=== PATIENT | male | born 1985 | race Two or more races ===

== ENCOUNTER 2019-12-13 10:00 | Inpatient (IN) | payer OTHER ==
--- NOTE | 2019-12-13 10:30 | ER Document Report ---
ED General - General Chief Complaint: Abnormal Lab Results Stated Complaint: ABNORMAL LABS Time Seen by Provider: 12/13/19 10:14 Primary Care Provider: BENITO,NOREEN [Primary Care Provider] - Follow up as needed Notes: HPI: 34-year-old male with a history of ulcerative colitis followed at [facility] by the pulp beater Dr. Jasper Aranda currently on a prednisone 3-week taper secondary to a recent ulcerative colitis flare, who presents feeling a little "tired" for 2 weeks. He had a hemoglobin drawn at lab core yesterday that was 6.1. Patient states some chronic abdominal discomfort with no increased intensity. No nausea, vomiting, or fevers. He does state some chronic diarrhea with possibly some blood which he states is normal. He is on his second infusion of Intivio. He has never received a blood transfusion. He does not remember his last colonoscopy. ROS: See HPI All other review of systems reviewed and otherwise negative Reviewed vital signs and nursing note as charted by RN. PHYSICAL EXAM: CONSTITUTIONAL: Alert and oriented and responds appropriately to questions. Well-appearing; well-nourished HEAD: Normocephalic; atraumatic EYES: PERRL; Conjunctivae clear, sclerae is pale ENT: Normal nose; no rhinorrhea; moist mucous membranes; mucosa is pale; pharynx without lesions noted NECK: Supple without meningismus; non-tender; no cervical lymphadenopathy, no masses CARD: Tachycardic and regular; no murmurs; symmetric distal pulses RESP: Normal chest excursion without splinting or tachypnea; breath sounds clear and equal bilaterally ABD/GI: Normal bowel sounds; non-distended; soft, mildly tender to all 4 quadrants of the abdomen without any rebound or guarding BACK: The back appears normal and is non-tender to palpation EXT: Normal ROM in all joints; non-tender to palpation; no edema SKIN: No acute lesions noted NEURO: CN 2-12 intact; 5/5 bilateral upper and lower extremity strength with sensation intact to light touch PSYCH: The patient's mood and manner are appropriate. Grooming and personal hygiene are appropriate. - Related Data Allergies/Adverse Reactions: No Known Drug Allergies Allergy (Mild, Verified 04/13/11 15:31) Past Medical History - Social History Smoking Status: Unknown if Ever Smoked Family History: Reviewed & Not Pertinent - Immunizations Hx Diphtheria, Pertussis, Tetanus Vaccination: Yes Physical Exam - Vital signs Vitals: Temp Pulse Resp BP Pulse Ox 98.9 F 115 H 18 118/74 98 12/13/19 10:06 12/13/19 10:06 12/13/19 10:06 12/13/19 10:06 12/13/19 10:06 Course - Re-evaluation Re-evalutation: 12/13/19 10:29 Given the above history and physical we will proceed with labs, repeat hemoglobin, type and screen, and reassess. Patient is slightly tachycardic. Sclera is pale. I have discussed the risk and benefits of providing blood in the patient understands these. He believes he would like to receive the blood if his hemoglobin is below 7. 12/13/19 11:40 Hemoglobin as recorded. We have consented the patient for blood transfusion. We will attempt to transfer the patient for further evaluation and treatment. Patient's heart rate is still 110. I will hold on fluids at this moment and provide the needed blood. We have called multiple locations given the current coronavirus in full capacity to try to find transfer for this patient as we do not have gastroenterology. We believe [facility] may have the capability. 12/13/19 11:57 At the patient's request I have called and spoken directly to the patient's gastroenterology team. I spoke with Oksana the nurse practitioner/nurse. She states that they will try to have the patient be able to be accepted at [facility] in [place]. 12/13/19 12:28 I was able to speak with our general surgeon here who states in the very unusual event that a colonoscopy is needed, he would be able to perform. Our hospital ist is comfortable with that. The patient's pulp beater is comfortable with that. She does recommend a 125 Solu-Medrol dose as well as to check for C. difficile and they will see the patient as an outpatient. - Vital Signs Vital signs: Temp Pulse Resp BP Pulse Ox 98.8 F 113 H 25 H 117/68 100 12/13/19 10:48 12/13/19 10:48 12/13/19 11:01 12/13/19 11:01 12/13/19 11:01 - Laboratory Result Diagrams: 12/13/19 10:31 12/13/19 10:31 Laboratory results interpreted by me: 12/13/19 12/13/19 12/13/19 10:31 10:31 10:31 WBC 12.5 H RBC 2.71 L Hgb 6.7 L Hct 22.1 L MCH 24.8 L MCHC 30.4 L RDW 19.3 H Plt Count 602 H Absolute Neuts (auto) 9.9 H Seg Neutrophils % 78.8 H Sodium 135.4 L Glucose 137 H Albumin 3.2 L Crossmatch See Detail Critical Care Note - Critical Care Note Total time excluding time spent on procedures (mins): 35 Discharge - Discharge Clinical Impression: Acute blood loss anemia GI bleeding Qualifiers: GI bleed type/associated pathology: unspecified gastrointestinal hemorrhage ty pe Qualified Code(s): K92.2 - Gastrointestinal hemorrhage, unspecified Condition: Fair Disposition: ADMITTED OBSERVATION Admitting Provider: Orly (Hospitalist) Unit Admitted: Medical Floor Referrals: LOCALMD,NO [Primary Care Provider] - Follow up as needed
[2019-12-13 10:56] LABS: INTERNATIONAL RATION (INR) 1.04; PROTHROMBIN TIME 13.8 SEC (11.4-15.4)
[2019-12-13 11:05] LABS: ABSOLUTE EOSINOPHILS # (AUTO) 0.2 10^3/uL (0.0-0.6); ABSOLUTE LYMPHOCYTES (AUTO) 1.8 10^3/uL (0.5-4.7); ABSOLUTE MONOCYTES (AUTO) 0.6 10^3/uL (0.1-1.4); ABSOLUTE NEUT (AUTO) 9.9 10^3/uL (1.7-8.2); BASOPHILS % (AUTO) 0.3 % (0-2); EOSINOPHILS % (AUTO) 1.7 % (0-6); HEMATOCRIT 22.1 % (37.9-51.0); LYMPHOCYTES % (AUTO) 14.7 % (13-45); MEAN CORPUSCULAR HEMOGLOBIN 24.8 pg (27.0-33.4); MEAN CORPUSCULAR HGB CONC 30.4 g/dL (32.0-36.0); MEAN CORPUSCULAR VOLUME 82 fl (80-97); MONOCYTES % (AUTO) 4.5 % (3-13); PLATELET COUNT 602 10^3/uL (150-450); RED BLOOD COUNT 2.71 10^6/uL (4.35-5.55); RED CELL DISTRIBUTION WIDTH 19.3 % (11.5-14.0); SEGMENTED NEUTROPHILS % (AUTO) 78.8 % (42-78); TOTAL CELLS COUNTED % (AUTO) 100 %; WHITE BLOOD COUNT 12.5 10^3/uL (4.0-10.5)
[2019-12-13 11:11] LABS: ALBUMIN 3.2 g/dL (3.5-5.0); ALKALINE PHOSPHATASE 72 U/L (38-126); ANION GAP 6 (5-19); ASPARTATE AMINO TRANSFERASE 17 U/L (17-59); BILIRUBIN,TOTAL 0.5 mg/dL (0.2-1.3); BLOOD UREA NITROGEN 8 mg/dL (7-20); CALCIUM 8.7 mg/dL (8.4-10.2); CARBON DIOXIDE 27 mmol/L (22-30); CHLORIDE 102 mmol/L (98-107); GLUCOSE 137 mg/dL (75-110); POTASSIUM 4.2 mmol/L (3.6-5.0); TOTAL PROTEIN 6.8 g/dL (6.3-8.2)
[2019-12-13 11:14] LABS: HEMOGLOBIN 6.7 g/dL (13.5-17.0)
[2019-12-13] MEDS ORDERED: NORMAL SALINE 250 ML IV PRN ×2 (11:41)
[2019-12-13] MEDS ORDERED: METHYLPREDNISOLONE INJ 125 MG/2 ML SDV IV ONE (12:27)
--- NOTE | 2019-12-13 12:37 | RADIOLOGY REPORT (SQ) ---
EXAM DESCRIPTION: CT ABD/PELVIS WITH IV ONLY IMAGES COMPLETED DATE/TIME: 12/13/2019 12:18 pm REASON FOR STUDY: 3; GI bleed COMPARISON: None. TECHNIQUE: CT scan of the abdomen and pelvis performed using helical scanning technique with dynamic intravenous contrast injection. No oral contrast. Images reviewed with lung, soft tissue, and bone windows. Reconstructed coronal and sagittal MPR images reviewed. Delayed images for evaluation of the urinary system also acquired. All images stored on PACS. All CT scanners at this facility use dose modulation, iterative reconstruction, and/or weight based d osing when appropriate to reduce radiation dose to as low as reasonably achievable (ALARA). [facility]: Dose Right [facility]: CareDose [facility]: Dose Right [facility]: Teradose 4D [facility]: Mob Science CONTRAST TYPE AND DOSE: contrast/concentration: Isovue 350.00 mmol/ml; Total Contrast Delivered: 94. 0 ml; Total Saline Delivered: 71.0 ml RENAL FUNCTION: GFR > 60. RADIATION DOSE: CT Rad equipment meets quality standard of care and radiation dose reduction techniq ues were employed. CTDIvol: 7.2 - 10.3 mGy. DLP: 912 mGy-cm.. LIMITATIONS: None. FINDINGS: LOWER CHEST: No significant findings. No nodules or infiltrates. LIVER: Normal size. Fatty change. No masses. No dilated ducts. SPLEEN: Normal size. No focal lesions. PANCREAS: No masses. No significant calcifications. No adjacent inflammation or peripancreatic fluid collections. Pancreatic duct not dilated. GALLBLADDER: No identified stones by CT criteria. No inflammatory changes to suggest cholecystitis. ADRENAL GLANDS: No significant masses or asymmetry. RIGHT KIDNEY AND URETER: No solid masses. No significant calcifications. No hydronephrosis or hyd roureter. LEFT KIDNEY AND URETER: No solid masses. No significant calcifications. No hydronephrosis or hydr oureter. AORTA AND VESSELS: No aneurysm. No dissection. Renal arteries, SMA, celiac without stenosis. RETROPERITONEUM: No retroperitoneal adenopathy, hemorrhage or masses. BOWEL AND PERITONEAL CAVITY: Hyperemia in the descending colon mesentery. No dilated loops. No asci cyndy. APPENDIX: Normal. PELVIS: No mass. No free fluid. Normal bladder. ABDOMINAL WALL: No masses. No hernias. BONES: No significant or acute findings. OTHER: No other significant finding. IMPRESSION: Colitis distal descending colon. TECHNICAL DOCUMENTATION: JOB ID: [id number] Quality ID # [id number]: Final reports with documentation of one or more dose reduction techniques (e.g., Au tomated exposure control, adjustment of the mA and/or kV according to patient size, use of iterative reconstruction technique) 2010 [employer]- All Rights Reserved Reading location - IP[facility]workstation name: [email or web address]
[2019-12-13] MEDS ORDERED: OXYCODONE-ACETAMINOPHEN 5-325 MG TABLET PO PRN (13:19)
[2019-12-13] MEDS ORDERED: ACETAMINOPHEN 325 MG TABLET PO PRN (13:19)
[2019-12-13] MEDS ORDERED: DEXTROSE 40% GEL 15 GM TUBE PO PRN ×2 (13:27)
[2019-12-13] MEDS ORDERED: DEXTROSE 50%-WATER 25 GM/50 ML DISP.SYRIN IV PRN ×2 (13:27)
[2019-12-13] MEDS ORDERED: GLUCAGON,HUMAN RECOMB 1 MG INJ SUBCUT PRN (13:27)
--- NOTE | 2019-12-13 13:35 | PDOC H&P ---
History of Present Illness Admission Date/PCP: 12/13/19 12:36 [facility] Patient complains of: Came in with abdominal cramps and loose stools History of Present Illness: KASHIF QUINTERO is a 34 year old male with history of ulcerative colitis on intivio, tapering dose of prednisone came to the emergency with complaints of abdominal cramps and loose stools on and off for last 2 months. Work-up in the ER shows WBC count of 12,500 and a hemoglobin of 6.7. Medical consult was called for admission the ER physician touch base with patient's quality eng and the recommendation is to start on IV fluids, IV steroids, blood transfusions and to check for stool for C. difficile. Patient agreed to stay in the hospital overnight. Denies any fevers denies any nausea denies any vomiting denies any abdominal pain except for cramps. Past Medical History GI Medical History: Reports: Ulcerative Colitis Social History Information Source: Patient Smoking Status: Unknown if Ever Smoked Electronic Cigarette use?: No Hx Recreational Drug Use: No Hx Prescription Drug Abuse: No - Advance Directive Resuscitation Status: Full Code Family History Family History: Reviewed & Not Pertinent Parental Family History Reviewed: Yes - No significant family history Children Family History Reviewed: Yes Sibling(s) Family History Reviewed.: Yes Medication/Allergy Home Medications: No Home Medications 04/13/11 Allergies/Adverse Reactions: No Known Drug Allergies Allergy (Mild, Verified 04/13/11 15:31) Review of Systems Constitutional: PRESENT: fatigue, weakness. ABSENT: fever(s), headache(s), night sweats Eyes: ABSENT: visual disturbances Ears: ABSENT: hearing changes Nose, Mouth, and Throat: ABSENT: sore throat Cardiovascular: ABSENT: orthropnea, palpitations Respiratory: ABSENT: hemoptysis Gastrointestinal: PRESENT: abdominal pain, diarrhea, other - Occasional bloody stools Musculoskeletal: ABSENT: joint swelling Integumentary: ABSENT: rash, wounds Neurological: ABSENT: abnormal gait, abnormal speech, confusion, dizziness, focal weakness, syncope Psychiatric: ABSENT: anxiety, depression, homidical ideation, suicidal ideation Physical Exam Vital Signs: Temp Pulse Resp BP Pulse Ox 98.8 F 113 H 24 H 122/75 100 12/13/19 10:48 12/13/19 10:48 12/13/19 12:00 12/13/19 12:01 12/13/19 12:00 Intake & Output 12/12/19 12/13/19 12/14/19 06:59 06:59 06:59 Weight 81.647 kg General appearance: PRESENT: mild distress, well-developed Head exam: PRESENT: atraumatic Eye exam: PRESENT: PERRLA Ear exam: PRESENT: normal external ear exam Mouth exam: PRESENT: neck supple Teeth exam: PRESENT: poor dentation Neck exam: ABSENT: carotid bruit, JVD, lymphadenopathy, thyromegaly Respiratory exam: PRESENT: decreased breath sounds Cardiovascular exam: PRESENT: RRR. ABSENT: diastolic murmur, rubs, systolic murmur GI/Abdominal exam: PRESENT: normal bowel sounds, soft. ABSENT: distended, guarding, mass, organolmegaly, rebound, tenderness Rectal exam: PRESENT: deferred Extremities exam: PRESENT: full ROM. ABSENT: calf tenderness, clubbing, pedal edema Neurological exam: PRESENT: alert, awake, oriented to person, oriented to place, oriented to time, oriented to situation, CN II-XII grossly intact. ABSENT: motor sensory deficit Results Laboratory Results: 12/13/19 10:31 12/13/19 10:31 12/13/19 12/13/19 12/13/19 10:31 10:31 10:31 WBC 12.5 H RBC 2.71 L Hgb 6.7 L Hct 22.1 L MCV 82 MCH 24.8 L MCHC 30.4 L RDW 19.3 H Plt Count 602 H Seg Neutrophils % 78.8 H Sodium 135.4 L Potassium 4.2 Chloride 102 Carbon Dioxide 27 Anion Gap 6 BUN 8 Creatinine 0.92 Est GFR ( Amer) > 60 Glucose 137 H Calcium 8.7 Total Bilirubin 0.5 AST 17 Alkaline Phosphatase 72 Total Protein 6.8 Albumin 3.2 L Blood Type B POSITIVE Antibody Screen NEGATIVE Impressions: Abdomen/Pelvis CT 12/13/19 11:39 IMPRESSION: Colitis distal descending colon. Assessment and Plan - Diagnosis (1) Acute blood loss anemia Is this a current diagnosis for this admission?: Yes Plan: 12/13/2019-patient is going to be admitted to medical floor with a diagnosis of acute blood loss anemia most likely secondary to GI bleed due to ulcerative colitis. Patient is going to be inpatient starting GI prophylaxis. No DVT prophylaxis initiated. Patient will be on SCDs. Heparin crossmatch was done plan is to transfuse 2 units of PRBC. Patient was started on IV Solu-Medrol 40 mg every 8 hours. Stool for C. difficile be checked. To continue IV fluids at 75 cc/h. He was started on Percocet 02/02/20 every 6 as needed. (2) Ulcerative colitis Is this a current diagnosis for this admission?: Yes Plan: 12/13/2019-patient is going to be admitted for a flareup of the ulcerative colitis. Started on IV Solu-Medrol 40 mg every 8 hours. N.p.o. today continue IV fluids, pain medications, GI prophylaxis. - Time Anticipated Discharge Disposition: Home, Self Care Anticipated Discharge Timeframe: within 48 hours
[2019-12-13] MEDS: METOCLOPRAMIDE HCL INJ/PF 10 MG/2 ML SDV IV SCH ×2 (16:10→23:51)
[2019-12-13] MEDS: DOCUSATE SODIUM 100 MG/10 ML UDC PO SCH (17:19)
[2019-12-13 21:26] LABS: C DIFFICILE GDH NEGATIVE (NEGATIVE)
[2019-12-13] MEDS: METHYLPREDNISOLONE INJ 40 MG/1 ML SDV IV SCH (23:50)
[2019-12-13] MEDS: FAMOTIDINE 20 MG TABLET PO SCH (23:50)
[2019-12-13] MEDS: MELATONIN 3 MG TABLET PO PRN (23:51)
[2019-12-13] MEDS: NORMAL SALINE 1000 ML 1,000 ML IV PRN (23:51)
[2019-12-14] MEDS: METHYLPREDNISOLONE INJ 40 MG/1 ML SDV IV SCH ×3 (05:18→22:07)
[2019-12-14 05:33] LABS: ABSOLUTE LYMPHOCYTES (AUTO) 1.6 10^3/uL (0.5-4.7); ABSOLUTE MONOCYTES (AUTO) 0.4 10^3/uL (0.1-1.4); ABSOLUTE NEUT (AUTO) 7.7 10^3/uL (1.7-8.2); HEMATOCRIT 25.8 % (37.9-51.0); HEMOGLOBIN 8.5 g/dL (13.5-17.0); LYMPHOCYTES % (AUTO) 16.6 % (13-45); MEAN CORPUSCULAR HEMOGLOBIN 27.6 pg (27.0-33.4); MEAN CORPUSCULAR VOLUME 84 fl (80-97); MONOCYTES % (AUTO) 4.4 % (3-13); PLATELET COUNT 484 10^3/uL (150-450); RED BLOOD COUNT 3.08 10^6/uL (4.35-5.55); RED CELL DISTRIBUTION WIDTH 17.7 % (11.5-14.0); TOTAL CELLS COUNTED % (AUTO) 100 %; WHITE BLOOD COUNT 9.8 10^3/uL (4.0-10.5)
[2019-12-14 05:36] LABS: ALBUMIN 2.9 g/dL (3.5-5.0); ALKALINE PHOSPHATASE 63 U/L (38-126); ANION GAP 8 (5-19); ASPARTATE AMINO TRANSFERASE 13 U/L (17-59); BILIRUBIN,TOTAL 0.6 mg/dL (0.2-1.3); BLOOD UREA NITROGEN 10 mg/dL (7-20); CALCIUM 8.7 mg/dL (8.4-10.2); CARBON DIOXIDE 24 mmol/L (22-30); CHLORIDE 105 mmol/L (98-107); CHOLESTEROL 170.06 mg/dL (0-200); GLUCOSE 142 mg/dL (75-110); POTASSIUM 4.6 mmol/L (3.6-5.0); TOTAL PROTEIN 6.2 g/dL (6.3-8.2); TRIGLYCERIDES 88 mg/dL (<150)
[2019-12-14 05:47] LABS: DIRECT LDL 107 mg/dL (<100)
[2019-12-14] MEDS: DOCUSATE SODIUM 100 MG/10 ML UDC PO SCH ×2 (09:03→17:11)
[2019-12-14] MEDS: FAMOTIDINE 20 MG TABLET PO SCH ×2 (09:05→22:07)
[2019-12-14] MEDS: METOCLOPRAMIDE HCL INJ/PF 10 MG/2 ML SDV IV SCH ×4 (09:05→22:07)
--- NOTE | 2019-12-14 10:55 | PDOC PROGRESS REPORT ---
Subjective Progress Note for:: 12/14/19 Subjective:: 34 year old male with history of ulcerative colitis on intivio, tapering dose of prednisone came to the emergency with complaints of abdominal cramps and loose stools on and off for last 2 months. Work-up in the ER shows WBC count of 12,500 and a hemoglobin of 6.7. Medical consult was called for admission the ER physician touch base with patient's practical nursing teacher and the recommendation is to start on IV fluids, IV steroids, blood transfusions and to check for stool for C. difficile. Patient agreed to stay in the hospital overnight. Denies any fevers denies any nausea denies any vomiting denies any abdominal pain except for cramps. 12/14/1942-34-nrek-old male admitted with flareup of ulcerative colitis doing well. Stool work-up came back positive for C. difficile. Started on p.o. vancomycin 125 mg every 6 hours and he will be in contact isolation. Reason For Visit: ULCERATIVE COLITIS Physical Exam Vital Signs: Temp Pulse Resp BP Pulse Ox 98.8 F 105 H 18 124/70 96 12/13/19 23:01 12/13/19 23:01 12/13/19 23:01 12/13/19 23:01 12/13/19 23:01 Intake & Output 12/13/19 12/14/19 12/15/19 06:59 06:59 06:59 Intake Total 1100 Output Total 0 Balance 1100 Weight 82.4 kg General appearance: PRESENT: no acute distress, cooperative, well-developed Head exam: PRESENT: atraumatic Eye exam: PRESENT: PERRLA Mouth exam: PRESENT: moist, tongue midline Throat exam: PRESENT: tonsillogmegaly Respiratory exam: PRESENT: decreased breath sounds Cardiovascular exam: PRESENT: RRR. ABSENT: diastolic murmur, rubs, systolic murmur GI/Abdominal exam: PRESENT: normal bowel sounds, soft. ABSENT: distended, guarding, mass, organolmegaly, rebound, tenderness Rectal exam: PRESENT: deferred Extremities exam: PRESENT: full ROM. ABSENT: calf tenderness, clubbing, pedal edema Neurological exam: PRESENT: alert, awake, oriented to person, oriented to place, oriented to time, oriented to situation, CN II-XII grossly intact. ABSENT: motor sensory deficit Psychiatric exam: PRESENT: appropriate affect, normal mood. ABSENT: homicidal ideation, suicidal ideation Results Laboratory Results: 12/14/19 04:59 12/14/19 04:59 12/13/19 12/13/19 12/13/19 10:31 10:31 10:31 WBC 12.5 H RBC 2.71 L Hgb 6.7 L Hct 22.1 L MCV 82 MCH 24.8 L MCHC 30.4 L RDW 19.3 H Plt Count 602 H Seg Neutrophils % 78.8 H Sodium 135.4 L Potassium 4.2 Chloride 102 Carbon Dioxide 27 Anion Gap 6 BUN 8 Creatinine 0.92 Est GFR ( Amer) > 60 Glucose 137 H Calcium 8.7 Magnesium Total Bilirubin 0.5 AST 17 Alkaline Phosphatase 72 Total Protein 6.8 Albumin 3.2 L Triglycerides Cholesterol LDL Cholesterol Direct VLDL Cholesterol HDL Cholesterol Stl C.difficile Tox PCR Blood Type B POSITIVE Antibody Screen NEGATIVE 12/13/19 12/14/19 12/14/19 20:19 04:59 04:59 WBC 9.8 RBC 3.08 L Hgb 8.5 L Hct 25.8 L MCV 84 MCH 27.6 MCHC 33.0 RDW 17.7 H Plt Count 484 H Seg Neutrophils % 79.0 H Sodium 136.9 L Potassium 4.6 Chloride 105 Carbon Dioxide 24 Anion Gap 8 BUN 10 Creatinine 0.80 Est GFR ( Amer) > 60 Glucose 142 H Calcium 8.7 Magnesium 2.2 Total Bilirubin 0.6 AST 13 L Alkaline Phosphatase 63 Total Protein 6.2 L Albumin 2.9 L Triglycerides 88 Cholesterol 170.06 LDL Cholesterol Direct 107 H VLDL Cholesterol 18.0 HDL Cholesterol 54 Stl C.difficile Tox PCR POSITIVE Blood Type Antibody Screen Impressions: Abdomen/Pelvis CT 12/13/19 11:39 IMPRESSION: Colitis distal descending colon. Assessment and Plan - Diagnosis (1) Acute blood loss anemia Is this a current diagnosis for this admission?: Yes Plan: 12/13/2019-patient is going to be admitted to medical floor with a diagnosis of acute blood loss anemia most likely secondary to GI bleed due to ulcerative colitis. Patient is going to be inpatient starting GI prophylaxis. No DVT prophylaxis initiated. Patient will be on SCDs. Heparin crossmatch was done plan is to transfuse 2 units of PRBC. Patient was started on IV Solu-Medrol 40 mg every 8 hours. Stool for C. difficile be checked. To continue IV fluids at 75 cc/h. He was started on Percocet 02/02/20 every 6 as needed. 12/14/19-patient came in with acute blood loss anemia with hemoglobin of 6.7 most likely secondary to flareup of ulcerative colitis. After 2 units of PRBC he moglobin came up to 8.5. Plan is to closely monitor the labs on regular basis. (2) Ulcerative colitis Is this a current diagnosis for this admission?: Yes Plan: 12/13/2019-patient is going to be admitted for a flareup of the ulcerative colitis. Started on IV Solu-Medrol 40 mg every 8 hours. N.p.o. today continue IV fluids, pain medications, GI prophylaxis. (3) C. difficile diarrhea Is this a current diagnosis for this admission?: Yes Plan: 12/14/2019-stool culture is positive for C. difficile. Started on p.o. vancomycin 125 mg every 6 hours. Contact isolation is requested. - Time Anticipated Discharge Disposition: Home, Self Care Anticipated Discharge Timeframe: within 48 hours
[2019-12-14] MEDS: VANCOMYCIN HCL INJ 500 MG VIAL PO SCH ×2 (11:30→17:08)
[2019-12-14] MEDS: NORMAL SALINE 1000 ML 1,000 ML IV PRN (13:12)
[2019-12-14] MEDS: MELATONIN 3 MG TABLET PO PRN (22:07)
[2019-12-15] MEDS: VANCOMYCIN HCL INJ 500 MG VIAL PO SCH ×3 (00:33→12:10)
[2019-12-15] MEDS: METHYLPREDNISOLONE INJ 40 MG/1 ML SDV IV SCH (06:00)
[2019-12-15 06:15] LABS: ABSOLUTE LYMPHOCYTES (AUTO) 1.5 10^3/uL (0.5-4.7); ABSOLUTE MONOCYTES (AUTO) 1.3 10^3/uL (0.1-1.4); ABSOLUTE NEUT (AUTO) 7.2 10^3/uL (1.7-8.2); BASOPHILS % (AUTO) 0.2 % (0-2); HEMATOCRIT 25.7 % (37.9-51.0); HEMOGLOBIN 8.3 g/dL (13.5-17.0); LYMPHOCYTES % (AUTO) 15.3 % (13-45); MEAN CORPUSCULAR HEMOGLOBIN 26.9 pg (27.0-33.4); MEAN CORPUSCULAR HGB CONC 32.3 g/dL (32.0-36.0); MEAN CORPUSCULAR VOLUME 83 fl (80-97); MONOCYTES % (AUTO) 12.6 % (3-13); PLATELET COUNT 491 10^3/uL (150-450); RED BLOOD COUNT 3.08 10^6/uL (4.35-5.55); RED CELL DISTRIBUTION WIDTH 18.7 % (11.5-14.0); SEGMENTED NEUTROPHILS % (AUTO) 71.9 % (42-78); TOTAL CELLS COUNTED % (AUTO) 100 %
[2019-12-15 06:35] LABS: ALBUMIN 2.9 g/dL (3.5-5.0); ALKALINE PHOSPHATASE 56 U/L (38-126); ANION GAP 8 (5-19); ASPARTATE AMINO TRANSFERASE 18 U/L (17-59); BILIRUBIN,TOTAL 0.4 mg/dL (0.2-1.3); BLOOD UREA NITROGEN 13 mg/dL (7-20); CALCIUM 8.4 mg/dL (8.4-10.2); CARBON DIOXIDE 23 mmol/L (22-30); CHLORIDE 105 mmol/L (98-107); GLUCOSE 161 mg/dL (75-110); POTASSIUM 4.3 mmol/L (3.6-5.0)
[2019-12-15] MEDS: METOCLOPRAMIDE HCL INJ/PF 10 MG/2 ML SDV IV SCH ×2 (07:38→10:50)
[2019-12-15] MEDS: FAMOTIDINE 20 MG TABLET PO SCH (10:50)
[2019-12-15] MEDS: DOCUSATE SODIUM 100 MG/10 ML UDC PO SCH (10:50)
[2019-12-15 12:07] VITALS: BP 140/74
--- NOTE | 2019-12-15 13:29 | PDOC DISCHARGE SUMMARY ---
Impression - Admit/DC Date/PCP Admission Date/Primary Care Provider: 12/13/19 12:[facility] Discharge Date: 12/15/19 - Discharge Diagnosis (1) Acute blood loss anemia Is this a current diagnosis for this admission?: Yes (2) Ulcerative colitis Is this a current diagnosis for this admission?: Yes (3) C. difficile diarrhea Is this a current diagnosis for this admission?: Yes - Additional Information Resuscitation Status: Full Code Discharge Diet: Cardiac Discharge Activity: Activity As Tolerated Referrals: [facility] [Provider Group] Prescriptions: Prednisone 10 mg PO BID 7 Days #14 tab Vancomycin HCl [Vancocin Inj 500 mg Vial] 125 mg PO Q6 10 Days #40 tab Home Medications: Prednisone 10 mg PO BID 7 Days #14 tab 12/15/19 Vancomycin HCl [Vancocin Inj 500 mg Vial] 125 mg PO Q6 10 Days #40 tab 12/15/19 History of Present Illiness History of Present Illness: KASHIF QUINTERO is a 34 year old male with history of ulcerative colitis on intivio, tapering dose of prednisone came to the emergency with complaints of abdominal cramps and loose stools on and off for last 2 months. Work-up in the ER shows WBC count of 12,500 and a hemoglobin of 6.7. Medical consult was called for admission the ER physician touch base with patient's kitchen chef and the recommendation is to start on IV fluids, IV steroids, blood transfusions and to check for stool for C. difficile. Patient agreed to stay in the hospital overnight. Denies any fevers denies any nausea denies any vomiting denies any abdominal pain except for cramps. Hospital Course Hospital Course: 34 year old male with history of ulcerative colitis on intivio, tapering dose of prednisone came to the emergency with complaints of abdominal cramps and loose stools on and off for last 2 months. Work-up in the ER shows WBC count of 12,500 and a hemoglobin of 6.7. Medical consult was called for admission the ER physician touch base with patient's kitchen chef and the recommendation is to start on IV fluids, IV steroids, blood transfusions and to check for stool for C. difficile. Patient agreed to stay in the hospital overnight. Denies any fevers denies any nausea denies any vomiting denies any abdominal pain except for cramps. 12/15/2019-patient states her diarrhea is improving. Stomach cramps resolved. Expressing desire to go home today with p.o. vancomycin. I tried my best to convince him to stay in the hospital he prefers to go home and continue p.o. antibiotic therapy. Prescription for p.o. vancomycin was given and the patient called me back and said it cost him $900 at [facility]. He requested me to call [facility] pharmacy just in the [facility] give the montoya of $500 per 10-day supply of p.o. vancomycin. Antibiotics is switched to Flagyl 500 mg p.o. 3 times daily for 10 days because of the cost of $35. Patient agreed for the change of medication and he is going to follow-up with gastroenterology next week. Physical Exam Vital Signs: Temp Pulse Resp BP Pulse Ox 98.2 F 105 H 19 140/74 H 100 12/15/19 12:00 12/15/19 12:00 12/15/19 12:00 12/15/19 12:00 12/15/19 12:00 Intake & Output 12/14/19 12/15/19 12/16/19 06:59 06:59 06:59 Intake Total 1100 1380 240 Output Total 0 Balance 1100 1380 240 Weight 82.4 kg 88.1 kg General appearance: PRESENT: no acute distress, well-developed Head exam: PRESENT: atraumatic Eye exam: PRESENT: PERRLA Ear exam: PRESENT: normal external ear exam Mouth exam: PRESENT: moist, tongue midline Neck exam: PRESENT: carotid bruit Respiratory exam: PRESENT: clear to auscultation milo. ABSENT: rales, rhonchi, wheezes Cardiovascular exam: PRESENT: RRR. ABSENT: diastolic murmur, rubs, systolic murmur GI/Abdominal exam: PRESENT: normal bowel sounds, soft. ABSENT: distended, guarding, mass, organolmegaly, rebound, tenderness Rectal exam: PRESENT: deferred Extremities exam: PRESENT: full ROM. ABSENT: calf tenderness, clubbing, pedal edema Neurological exam: PRESENT: alert, awake, oriented to person, oriented to place, oriented to time, oriented to situation, CN II-XII grossly intact. ABSENT: motor sensory deficit Psychiatric exam: PRESENT: appropriate affect, normal mood. ABSENT: homicidal ideation, suicidal ideation Results Laboratory Results: WBC 10.0 10^3/uL (4.0-10.5) 12/15/19 05:26 RBC 3.08 10^6/uL (4.35-5.55) L 12/15/19 05:26 Hgb 8.3 g/dL (13.5-17.0) L 12/15/19 05:26 Hct 25.7 % (37.9-51.0) L 12/15/19 05:26 MCV 83 fl (80-97) 12/15/19 05:26 MCH 26.9 pg (27.0-33.4) L 12/15/19 05:26 MCHC 32.3 g/dL (32.0-36.0) 12/15/19 05:26 RDW 18.7 % (11.5-14.0) H 12/15/19 05:26 Plt Count 491 10^3/uL (150-450) H 12/15/19 05:26 Lymph % (Auto) 15.3 % (13-45) 12/15/19 05:26 [place] % (Auto) 12.6 % (3-13) 12/15/19 05:26 Eos % (Auto) 0.0 % (0-6) 12/15/19 05:26 Baso % (Auto) 0.2 % (0-2) 12/15/19 05:26 Absolute Neuts (auto) 7.2 10^3/uL (1.7-8.2) 12/15/19 05:26 Absolute Lymphs (auto) 1.5 10^3/uL (0.5-4.7) 12/15/19 05:26 Absolute Monos (auto) 1.3 10^3/uL (0.1-1.4) 12/15/19 05:26 Absolute Eos (auto) 0.0 10^3/uL (0.0-0.6) 12/15/19 05:26 Absolute Basos (auto) 0.0 10^3/uL (0.0-0.2) 12/15/19 05:26 Seg Neutrophils % 71.9 % (42-78) 12/15/19 05:26 PT 13.8 SEC (11.4-15.4) 12/13/19 10:31 INR 1.04 12/13/19 10:31 Sodium 136.0 mmol/L (137-145) L 12/15/19 05:26 Potassium 4.3 mmol/L (3.6-5.0) 12/15/19 05:26 Chloride 105 mmol/L (98-107) 12/15/19 05:26 Carbon Dioxide 23 mmol/L (22-30) 12/15/19 05:26 Anion Gap 8 (5-19) 12/15/19 05:26 BUN 13 mg/dL (7-20) 12/15/19 05:26 Creatinine 0.77 mg/dL (0.52-1.25) 12/15/19 05:26 Est GFR ( Amer) > 60 (>60) 12/15/19 05:26 Est GFR (MDRD) Non-Af > 60 (>60) 12/15/19 05:26 Glucose 161 mg/dL (75-110) H 12/15/19 05:26 Calcium 8.4 mg/dL (8.4-10.2) 12/15/19 05:26 Magnesium 2.3 mg/dL (1.6-2.3) 12/15/19 05:26 Total Bilirubin 0.4 mg/dL (0.2-1.3) 12/15/19 05:26 Direct Bilirubin 0.0 mg/dL (0.0-0.4) 12/15/19 05:26 Neonat Total Bilirubin Not Reportable 12/15/19 05:26 Neonat Direct Bilirubin Not Reportable 12/15/19 05:26 Neonat Indirect Bili Not Reportable 12/15/19 05:26 AST 18 U/L (17-59) 12/15/19 05:26 ALT 24 U/L (<50) 12/15/19 05:26 Alkaline Phosphatase 56 U/L (38-126) 12/15/19 05:26 Total Protein 6.0 g/dL (6.3-8.2) L 12/15/19 05:26 Albumin 2.9 g/dL (3.5-5.0) L 12/15/19 05:26 Triglycerides 88 mg/dL (<150) 12/14/19 04:59 Cholesterol 170.06 mg/dL (0-200) 12/14/19 04:59 LDL Cholesterol Direct 107 mg/dL (<100) H 12/14/19 04:59 VLDL Cholesterol 18.0 mg/dL (10-31) 12/14/19 04:59 HDL Cholesterol 54 mg/dL (>40) 12/14/19 04:59 POC Stool Occult Blood POSITIVE (NEGATIVE) 12/13/19 10:21 Stl C. Difficile GDH Ag NEGATIVE (NEGATIVE) 12/13/19 20:19 Stl C.difficile Tox A&B POSITIVE (NEGATIVE) 12/13/19 20:19 Stl C.difficile Tox PCR POSITIVE (NEGATIVE) 12/13/19 20:19 Blood Type B POSITIVE 12/13/19 10:31 Blood Type Confirm B POSITIVE 12/13/19 12:45 Antibody Screen NEGATIVE 12/13/19 10:31 Crossmatch See Detail 12/13/19 10:31 Impressions: Abdomen/Pelvis CT 12/13/19 11:39 IMPRESSION: Colitis distal descending colon. Plan Plan of Treatment: Patient is advised to be compliant with his medications and follow-up with gastroenterology next week. Stroke Is this a Stroke Patient?: No Acute Heart Failure - Is this a Heart Failure Patient?: No
== END 2019-12-15 12:11 | disposition home or self-care (01) | DRG 386 ==
LOC: ER 10:00 → EH 12:36 → OBSVTOIN 12:36 → 4S 14:09
PROVIDERS: ADMIT Internal Medicine; ATTEND Internal Medicine
PROC: 30233N1 Transfusion of Nonautologous Red Blood Cells into Peripheral Vein, Percutaneous Approach (ICD-10-PCS; principal; 2019-12-13)
DX: K51.818 Other ulcerative colitis with other complication (principal); D62 Acute posthemorrhagic anemia; A04.72 Enterocolitis due to Clostridium difficile, not specified as recurrent
CPT/HCPCS: 36415; 36430; 74177; 80053; 80061; 82270; 83735; 85025; 85610; 86850; 86900; 86901; 86920; 87324; 87449; 87493; J2765; J2920; J2930; J3370; J3490; J7030; P9016